=== PATIENT | female | born 1975 | race Caucasian/White ===

== ENCOUNTER → 2017-11-02 09:15 | Outpatient (CLI) | payer MEDICAID, SELFPAY ==
[2017-11-02 10:36] LABS: Anion Gap 6 (5-15); BUN 11 mg/dL (7-18); BUN/Creat Ratio 14.8 RATIO (10-20); Calcium,Total 8.5 mg/dL (8.5-10.1); Chloride 109 mmol/L (98-107); Cholesterol 146 mg/dL (200); Creatinine, Serum 0.74 mg/dL (0.55-1.02); EST Glomerular Filtration Rate 91 mL/min (>60); Est Glom Filt Rate - Afr Amer 111 mL/min (>60); Glucose 93 mg/dL (74-106); High Density Lipoprotein 50 mg/dL; Potassium 3.9 mmol/L (3.5-5.1); Sodium Level 142 mmol/L (136-145); Triglycerides 70 mg/dL; Very Low Density Lipoprotein 14 mg/dL (5-40)
== END ==
PROVIDERS: Family Provider Family Medicine; PCP Family Medicine; Visit Provider Family Medicine
DX: Z00.00 Encounter for general adult medical examination without abnormal findings (principal)
CPT/HCPCS: 36415; 80048; 80061

== ENCOUNTER → 2017-11-19 16:01 | Outpatient (CLI) | payer MEDICAID, SELFPAY ==
[2017-11-19 17:51] LABS: ALB/GLOB Ratio 1.1 RATIO (0.9-2.4); AST(SGOT) 16 U/L (15-37); Alanine Aminotransfer ALT/SGPT 26 U/L (13-56); Albumin, Serum 3.8 g/dL (3.2-5.0); Alkaline Phosphatase 56 U/L (45-117); Anion Gap 8 (5-15); BUN 11 mg/dL (7-18); BUN/Creat Ratio 11.9 RATIO (10-20); Calcium,Total 8.6 mg/dL (8.5-10.1); Chloride 106 mmol/L (98-107); Creatinine, Serum 0.93 mg/dL (0.55-1.02); EST Glomerular Filtration Rate 71 mL/min (>60); Est Glom Filt Rate - Afr Amer 86 mL/min (>60); Globulin 3.6 g/dL (2.2-4.2); Glucose 83 mg/dL (74-106); Protein, Total 7.4 g/dL (6.4-8.2); Sodium Level 142 mmol/L (136-145)
== END ==
PROVIDERS: Family Provider Family Medicine; PCP Family Medicine; Visit Provider Family Medicine
DX: B35.1 Tinea unguium (principal)
CPT/HCPCS: 36415; 80053

== ENCOUNTER → 2017-12-02 11:37 | Outpatient (CLI) | payer MEDICAID, SELFPAY ==
[2017-12-07 10:12] LABS: HPV Reflexed? NOT INDICATED
== END ==
PROVIDERS: Visit Provider Obstetrics & Gynecology
DX: Z01.419 Encounter for gynecological examination (general) (routine) without abnormal findings (principal)
CPT/HCPCS: 88175; G0145

== ENCOUNTER → 2017-12-16 14:50 | Outpatient (CLI) | payer MEDICAID, SELFPAY ==
--- NOTE | 2017-12-16 14:53 | BI_ITS ---
MAMMOGRAPHY - BILATERAL SCREENING REASON FOR EXAM: Female, 41 years old. Routine annual screening examination. PERTINENT HISTORY: Non-contributory. TECHNIQUE: Digital bilateral breast yani (3D mammographic acquisition) in the CC and MLO projections. 2-D mediolateral oblique (MLO) and craniocaudad (CC) views of both breasts were obtained. CAD: Full Field Digital Mammography with Computer Added Detection was performed. COMPARISON: None. Baseline examination. FINDINGS: Breast Composition: There are scattered areas of fibroglandular density. There are no dominant masses or suspicious calcifications. There is a 1 cm x 1 cm well-defined nodule with a central fatty notch in the upper lateral aspect of the left breast. This most likely represents a small lymph node. Correlation with ultrasound is recommended. Several benign-appearing lymph nodes are seen in the axillary regions bilaterally. No other significant abnormalities are identified. BI/SCREENING MAMM (CAD), BILAT IMPRESSION: 1 cm x 1 cm well-defined nodule in the upper lateral portion of the left breast as described. This most likely represents a small lymph node. Progress with ultrasound is recommended. ASSESSMENT CATEGORY: BIRADS Category 0: Incomplete. Need additional imaging evaluation. A letter regarding these results will be sent to the patient by the facility within 30 days. Approximately 10% of breast cancers are not detected by mammography. A normal mammogram should not delay biopsy of a clinically suspicious abnormality. [id number] Electronically Signed: Kelton Alcocer MD at 9:43 EDT Tel [phone], Service support ,
== END ==
PROVIDERS: Family Provider Family Medicine; PCP Family Medicine; Visit Provider Obstetrics & Gynecology
DX: Z12.31 Encounter for screening mammogram for malignant neoplasm of breast (principal)
CPT/HCPCS: 77063; 77067

== ENCOUNTER → 2017-12-18 15:11 | Outpatient (CLI) | payer MEDICAID, SELFPAY ==
--- NOTE | 2017-12-18 15:13 | US_ITS ---
STUDY: ULTRASOUND BREAST - LEFT REASON FOR EXAM: Female, 41 years old. Abnormal left mammogram. TECHNIQUE: Axial and longitudinal images of the LEFT breast were performed with a high resolution ultrasound transducer. COMPARISON: No prior ultrasound imaging available. Correlation bilateral mammogram 12/16/2017. FINDINGS: LEFT Breast: There is a lesion in the upper Outer quadrant. The lesion measures 0.7 x 0.7 x 0.6 cm in size. Clock notation: 2 o'clock position. Distance from nipple: 6 cm. Posterior Enhancement: Identified Posterior Shadowing: Not identified Margins: Smooth and well demarcated Echogenicity: Heterogeneous with central hyperechoic likely fatty hilum and peripheral hypoechogenicity most suggestive a lymph node. Central internal color Doppler signal also. Compression effect on Shape: Minimal US/Breast Limited Unilateral IMPRESSION: Benign-appearing lymph node in the left breast corresponding to mammographic finding. Recommend routine annual bilateral mammogram in 12 months. ASSESSMENT CATEGORY: BIRADS Category 2: Benign. A letter regarding these results will be sent to the patient by the facility within 30 days. Negative results should not deter biopsy as a palpable lesion if present should be followed on clinical grounds and biopsy performed if clinically persistent for 3 months or increasing size. Approximately 10% of breast cancers are not detected by mammography. A normal mammogram should not delay biopsy of a clinically suspicious abnormality. Electronically Signed: Arthur Lucien, at 20:48 EDT Tel , Service support ,
== END ==
PROVIDERS: Family Provider Family Medicine; PCP Family Medicine; Visit Provider Obstetrics & Gynecology
DX: R92.8 Other abnormal and inconclusive findings on diagnostic imaging of breast (principal)
CPT/HCPCS: 76642

== ENCOUNTER → 2019-11-30 15:57 | Outpatient (CLI) | payer MEDICAID, SELFPAY ==
--- NOTE | 2019-11-30 15:59 | BI_ITS ---
MAMMOGRAPHY - BILATERAL SCREENING REASON FOR EXAM: Female, 43 years old. Routine annual screening examination. PERTINENT HISTORY: Non-contributory. TECHNIQUE: Digital bilateral breast vandana (3D mammographic acquisition) in the CC and MLO projections. 2-D mediolateral oblique (MLO) and craniocaudad (CC) views of both breasts were obtained. CAD: Full Field Digital Mammography with Computer Added Detection was performed. COMPARISON: Comparison is made with prior examination dated December 16, 2017. FINDINGS: Breast Composition: There are scattered areas of fibroglandular density. There are no dominant masses or suspicious calcifications. Stable 8 mm well-defined nodule with a central fatty notch in the lateral upper aspect of the left breast. This was demonstrated to be a small lymph node on prior sonogram. No other significant abnormalities are identified. There has been no significant change since the prior study. BI/SCREEN MAMM (CAD) W/VANDANA BILAT IMPRESSION: Stable bilateral screening mammogram. Yearly follow-up mammogram recommended. (A) ASSESSMENT CATEGORY: BIRADS Category 2: Benign. A letter regarding these results will be sent to the patient by the facility within 30 days. Approximately 10% of breast cancers are not detected by mammography. A normal mammogram should not delay biopsy of a clinically suspicious abnormality. [id number] Electronically Signed: Kelton Alcocer, at 8:25 EDT , Service support ,
== END ==
PROVIDERS: PCP Family Medicine; Referring Provider Obstetrics & Gynecology; Visit Provider Obstetrics & Gynecology
DX: Z12.31 Encounter for screening mammogram for malignant neoplasm of breast (principal)
CPT/HCPCS: 77063; 77067

== ENCOUNTER → 2021-02-01 15:02 | Outpatient (CLI) | payer MEDICAID, SELFPAY | PROVIDERS: PCP Family Medicine; Referring Provider Family Medicine; Visit Provider Family Medicine | DX: Z20.822 Contact with and (suspected) exposure to COVID-19 (principal) | CPT/HCPCS: 87635; U0003 ==

== ENCOUNTER 2021-08-01 15:00 | Outpatient (CLI) | payer MEDICAID, SELFPAY ==
--- NOTE | 2021-08-01 15:04 | RAD_ITS ---
INDICATION: KNEE PAIN EXAMINATION/TECHNIQUE: X-RAY - LEFT XR Knee Complete 4 Views or More 4 VIEWS COMPARISON: None. 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 Minimal lateral compartment degenerative changes. Mild patellofemoral joint degenerative changes. Joint spaces are otherwise intact. Soft tissues are unremarkable. No significant joint effusion. Electronically Signed: Charly Mejía, at 15:54 EDT ,
== END 2021-08-01 23:59 | disposition home or self-care (01) ==
LOC: MTRAD 15:02
PROVIDERS: PCP Family Medicine; Referring Provider Family Medicine; Visit Provider Family Medicine
DX: M17.12 Unilateral primary osteoarthritis, left knee (principal)
CPT/HCPCS: 73564

== ENCOUNTER → 2021-11-22 | Outpatient (CLI) | payer MEDICAID, SELFPAY | END | disposition home or self-care (01) | PROVIDERS: PCP Family Medicine; Visit Provider Family Medicine | DX: R30.0 Dysuria (principal) | CPT/HCPCS: 87077; 87086; 87088; 87186 ==

== ENCOUNTER → 2022-09-17 | Outpatient (CLI) | payer MEDICAID, SELFPAY ==
--- NOTE | 2022-09-17 08:30 | EMB_PTH ---
PATIENT: KEVEN COY LOC: [facility] U#:[id number] AGE/SX: 46/F ROOM: RE09/17/[address]: Dr. Yessenia Arellano DO : 1975 BED: DIS: 09/17/2022 SPEC #: [id number] RECD: 09/17/22 09:40 STATUS: LUCIUS SALEEM #: [id number] BAYLEE: 09/17/22 08:[address]: Yessenia Arellano DEPT: SURGICAL PATHOLOGY RECD BY: Monique Ma ENTERED: 09/17/22 10:08 SP TYPE: ENDOM BX/C OTHR DR: Dr. Mack Juan MD Tissues: Endometrium, NOS Procedures: Surgery Specimen Level IV HEADER OPERATION: Endometrial biopsy PRE-OP DIAGNOSIS: Abnormal uterine bleeding TISSUE SUBMITTED: Endometrial lining MICROSCOPIC DIAGNOSIS Endometrium, biopsy: Weakly proliferative endometrium with chronic endometritis, moderate to severe. AM:yuly 09/18/2022 MICROSCOPIC DESCRIPTION Slides are reviewed. GROSS DESCRIPTION Received is one container labeled with the patient's name and not further designated. The specimen consists of multiple fragments of hemorrhagic mucoid tissue that in aggregate measure 2.0 x 2.0 x 0.1 cm. The specimen is totally submitted in one cassette. / SJ:yuly 09/17/2022 TC:3 CPT: 09582
[2022-09-24 16:09] LABS: HPV APTIMA, High Risk Positive (Negative)
== END | disposition home or self-care (01) ==
PROVIDERS: PCP Family Medicine; Referring Provider Obstetrics & Gynecology; Visit Provider Obstetrics & Gynecology
DX: Z12.4 Encounter for screening for malignant neoplasm of cervix (principal); N71.1 Chronic inflammatory disease of uterus; N93.9 Abnormal uterine and vaginal bleeding, unspecified
CPT/HCPCS: 87624; 88175; 88305; G0145

== ENCOUNTER → 2022-10-02 | Outpatient (CLI) | payer MEDICAID, SELFPAY ==
--- NOTE | 2022-10-02 | CER_PTH ---
PATIENT: KEVEN COY LOC: [facility] U#:[id number] AGE/SX: 46/F ROOM: RE10/02/[address]: Dr. Yessenia Arellano DO : 1975 BED: DIS: 10/02/2022 SPEC #: [id number] RECD: 10/02/22 12:58 STATUS: LUCIUS SALEEM #: [id number] BAYLEE: 10/02/22 00:[address]: Yessenia Arellano DEPT: SURGICAL PATHOLOGY RECD BY: Young Hart ENTERED: 10/02/22 12:58 SP TYPE: CERV OTHR DR: Dr. Mack Juan MD Tissues: A - Uterine cervix, NOS B - Endocervical Procedures: Surgery Specimen Level IV HEADER OPERATION: Colposcopy PRE-OP DIAGNOSIS: ASCUS, HPV positive TISSUE SUBMITTED: A ? 12 o?clock, B ? Endocervical curettings MICROSCOPIC DIAGNOSIS A. Cervix, 12 o?clock, biopsy: A fragment of squamous mucosa, negative for dysplasia. B. Endocervix curettings: Scant fragments of mucoid tissue, insufficient for further evaluation. YONNY:yuly 10/03/2022 COMMENT Please make reference to previous specimen ([id number]), endometrium, biopsy with diagnosis of ?weakly proliferative endometrium with chronic endometritis, moderate to severe.? MICROSCOPIC DESCRIPTION Slides are reviewed. GROSS DESCRIPTION A - Received in fixative is one container labeled with the patient's name and designated 12 o'clock. The specimen consists of one irregular fragment of light quezada soft tissue that measures 0.4 x 0.4 x 0.1 cm. The specimen is totally submitted in one cassette. B - Received is a metallic endoscopic cytobrush with adherent minute fragments of quezada-red tissue brush in 2 ml of clear red fluid and labeled with the patient's name and and designated per the requisition as ECC. The material is dislodged from the brush and submitted for cytology preparation including cell block. / YONNY:yuly 10/02/2022 TC:5 CPT: 53135 x2
== END | disposition home or self-care (01) ==
LOC: LABSPEC 11:47
PROVIDERS: PCP Family Medicine; Referring Provider Obstetrics & Gynecology; Visit Provider Obstetrics & Gynecology
DX: R87.610 Atypical squamous cells of undetermined significance on cytologic smear of cervix (ASC-US) (principal); N89.8 Other specified noninflammatory disorders of vagina
CPT/HCPCS: 87070; 87077; 87205; 88305

== ENCOUNTER 2022-10-28 10:01 | Observation (INO) | payer MEDICAID, SELFPAY ==
[2022-10-16 12:53] LABS: Hematocrit 35.8 % (37-47); Hemoglobin 11.6 g/dL (12.0-15.0); Mean Corp Hgb Conc 32.4 g/dL (32-36); Mean Corpuscular Hgb 28.7 pg (27.0-32.0); Mean Corpuscular Volume 88.6 fL (81-99); Mean Platelet Vol. 9.3 fl (6.2-12.0); Platelet Count 432 K/mm3 (150-450); RBC Distribution Width SD 49.1 fl (35.1-43.9); Red Blood Count 4.04 M/mm3 (4.2-5.4); White Blood Count 9.8 K/mm3 (4.4-11.0)
[2022-10-16 13:10] LABS: Magnesium 2.4 mg/dL (1.6-2.6)
[2022-10-28] VITALS (13 sets, daily range): BP systolic 113–153; BP diastolic 68–88; PULSE 71–100; RESP 14–18; TEMP 36.6–36.9; O2SAT 93–99; BMI 44.7
[2022-10-28 06:07] LABS: Internal QC Validated? YES +Cl - CLEAR BKGD; Pregnancy, Urine Negative Negative
[2022-10-28] MEDS: Lactated Ringers 1,000 ML 40 ML IV (06:20)
[2022-10-28] MEDS: Magnesium 1 GM over 15 mins IV (06:21)
[2022-10-28] MEDS: Gabapentin 600 MG Tablet PO (06:22)
[2022-10-28] MEDS: Acetaminophen 500 MG Tablet 1000 MG PO ×3 (06:22→18:24)
[2022-10-28] MEDS: Celecoxib 200 MG Capsule 400 MG PO (06:23)
[2022-10-28] MEDS: Phenazopyridine 95 MG Tablet 190 MG PO (06:23)
[2022-10-28] MEDS: dexAMETHasone 4 MG/ML Vial 8 MG IV (06:24)
[2022-10-28 06:57] LABS: Bedside Glucose 96 mg/dL (74-106)
--- NOTE | 2022-10-28 07:25 | HP.PCM_ITS ---
History and Physical Date of Admission: 10/28/22 Intake Vital Signs ? 09/13/2307:13 09/18/2307:13 09/18/2307:14 Height 5 ft 1 in 5 ft 1 in 5 ft 1 in Weight: ? 235 lb 6 oz ? BMI ? 44.4 ? BP ? 163/89 H ? Intake Visit Reasons:?EMB Job Forwarder Required: No Is patient in pain?: No Allergies No Known Allergies Allergy (Verified 09/17/22 08:13) Medications bupropion HCl 300 mg 24 hr tablet, extended release (Wellbutrin XL) 300 mg PO QAM 09/09/22 [History Confirmed 09/17/22] duloxetine 60 mg capsule,delayed release (Cymbalta) 60 mg PO DAILY 09/09/22 [History Confirmed 09/17/22] methylphenidate HCl 20 mg tablet (Ritalin) 20 mg PO DAILY 09/09/22 [History Confirmed 09/17/22] Post menopausal: No Patient : No : No PFSH PFSH Medical History? Abnormal Pap smear of cervix Surgical History?(Updated 09/17/22 @ 08:21 by Leslee Nazario) S/P cholecystectomy S/P dilation and curettage S/P tubal ligation Family History? Father Alzheimer's dementia Social History? Smoking Status:? Never smoker alcohol intake:? current details:? occasionally substance use type:? does not use caffeine:? Yes what type of physical activity do you participate in:? none seatbelt use:? always do you feel safe at home:? Yes additional social history:? Boyfriend-Farshad ? History ? ? ? 2 ? Elective abortions ? Hx Para ? ? ? 2 ? Spontaneous abortions ? Hx # Term Pregnancies ? Ectopic pregnancies ? Hx # Pregnancies ? Multiple births ? # of living children ? Past Pregnancies Del. Date Name GA/Weeks Outcome Route Bth Weight Infant Gen Labor Lgth Anesthesia Del [facility] Provider FOB Unknown Hernan ? Unknown Nikolay ?A ? ? ? HPI EMB Details: KEVEN COY is a 46 year old who presents for EMB and pre-op exam. Some records from [place] came through showing a nomal size uterus and ascus pap. To recap, Keven is a (vaginal deliveries) who presented initially for discussion about hysterectomy last month. She was seeing a provider in [place] who is no longer taking her insurance. She had an abnormal pap her last test but does not remember getting a colposcopy. The reason for her request for hysterectomy is pelvic pain, heavy menses q 2 weeks with clots. She has tried hormone therapy and it did not help. she is not interested in an ablation or an IUD.? ROS Const ROS Unobtainable: All systems reviewed & are unremarkable except as noted in H Resp Resp: Reports system reviewed and no additional complaints, except as documented; Denies cough GI GI: Reports as per HPI Psych Psych: Reports system reviewed and no additional complaints, except as documented Exam Const General: cooperative, healthy appearing, comfortable and no acute distress Resp Effort & Inspection: normal respiratory effort General: bimanual renal exam normal bilaterally External Female Exam: normal appearance of the urethra Urethra: normal appearance of the urethra Speculum Exam - Vagina: normal appearance of the vagina Speculum Exam - Cervix: normal appearance of the cervix Bimanual Exam- Adnexa, other: normal adnexae and normal Pelvic Support: normal Skin General: no rashes or lesions noted Psych Appearance: grossly normal Speech and Movement: speech and movement normal Office Procedures Endometrial Biopsy Endometrial Biopsy Test: Yes declined Consent Signed: Yes Time out checklist: patient tenaculum used: Yes dilator used: No Details: Cervix prepped with betadine and pipelle inserted into uterus without complication. Specimen obtained and sent to lab for analysis. All instruments removed from vagina without complications. Excellent hemostasis noted. Coding Level of Care Code Off vis,est,level 5 Diagnoses Abnormal uterine bleeding? N93.9 CPT Codes Endometrial Biopsy (56951) Assessment and Plan Assessment and Plan (1) Abnormal uterine bleeding: ?Status:?Acute ? ? ? Orders: Orders Endometrial Biopsy Today N93.9 - Abnormal uterine and vaginal bleeding, unspecified ? PAP IG HPV APTIMA 16/18,45 Today Z12.4 - Encounter for screening for malignant neoplasm of cervix ? Plan After discussing the patient's diagnosis and treatment plan options, patient wishes to proceed with surgical management.? I have discussed with the patient the risks, benefits, and alternatives of the procedure which include but are not limited to risks of anesthesia, bleeding, infection, possible damage to bowel, bladder, or surrounding vasculature which could lead to additional surgery to evaluate any complications.? Patient agrees to procedure and wishes to proceed.? ACOG/uptodate references given for additional information regarding procedure.? Plan for robotic surgery due to obesity and poor vaginal access. Assessment & Plan Assessment/Plan (1) Abnormal uterine bleeding: (2) ASCUS of cervix with negative high risk HPV: (3) Hypertension: PLAN: Plan The colposcopy was benign and bp well controlled on HCTZ. patient would like full admit after surgery due to lack of help at home. Her friend who was her ride passed out in preop today and is not fit to drive herself or [place] home after surgery.
--- NOTE | 2022-10-28 07:30 | HYST_PTH ---
PATIENT: KEVEN COY LOC: [facility] U#:[id number] AGE/SX: 46/F [place] [facility] [place]: Dr. Yessenia Arellano DO : 1975 BED: 1 DIS: 10/29/2022 SPEC #: [id number] RECD: 10/28/22 12:11 STATUS: LUCIUS SALEEM #: [id number] BAYLEE: 10/28/22 07:[address]: Yessenia Arellano DEPT: SURGICAL PATHOLOGY RECD BY: Monique Ma ENTERED: 10/28/22 12:34 SP TYPE: HYSTERECT OTHR DR: Dr. Mack Juan MD Tissues: Uterus, NOS Procedures: Surgery Specimen Level V HEADER OPERATION: ERAS, lab robotic hysterectomy, bilateral salpingectomy, cystoscopy PRE-OP DIAGNOSIS: Abnormal uterine bleeding, ASCUS of cervix with negative high risk HPV TISSUE SUBMITTED: Uterus, cervix, bilateral fallopian tubes MICROSCOPIC DIAGNOSIS Uterus, cervix, bilateral fallopian tubes, hysterectomy and bilateral salpingectomy: Cervix ? chronic cystic cervicitis with tunnel cluster formation and squamous metaplasia. - negative for dysplasia. See comment. Endometrium ? proliferative endometrium. Myometrium ? focal superficial adenomyosis. Bilateral fallopian tubes ? focal minimal hematosalpinx and chronic inflammation proximal to the site of tubal occlusion. Right paratubal cyst. SJ:rg 10/29/2022 COMMENT Entire cervix is examined. MICROSCOPIC DESCRIPTION Slides are reviewed. GROSS DESCRIPTION Received in fixative is one container labeled with the patient's name and designated uterus, cervix, bilateral fallopian tube. The specimen consists of a hysterectomy specimen consisting of uterus with cervix and attached bilateral fallopian tubes. The uterus with cervix weighs 125 gm and measures 10.0 x 6.5 x 4.5 cm. The serosal surface is quezada, glistening. The ectocervical mucosa is unremarkable. The external os is oval in contour. The endocervical canal measures 3.0 cm in length and the endocervical mucosa is unremarkable. Sections of the cervix reveal multiple cysts filled with mucoid material. The triangular endometrial cavity measures 4.5 cm in length and 2.5 cm in width. The endometrium is quezada, glistening without any mass lesion and measures 0.1 cm in thickness. Sections of the uterine wall do not reveal any mass lesion and measures up to 2.5 cm in thickness. The right fallopian tube measures 6.0 cm in length and 0.5 cm in diameter. It is interrupted in the middle consistent with previous tubal occlusion. The fimbrial end is identified. Proximal portion of the fallopian tube reveals a mildly dilated lumen measuring 0.1 cm in diameter and filled with blood. A paratubal cyst is also noted measuring 0.7 cm in greatest dimension. The left fallopian tube is similar appearance to right and measures 5.5 cm in length and 0.6 cm in diameter. The fimbrial end is identified. It is also interrupted in the middle consistent with previous tubal occlusion. The proximal portion of the fallopian tube shows dilated lumen measuring 0.2 cm in diameter and filled with a small amount of blood. Staffing Program Manager sections are submitted in 14 cassettes as follows: 1-8 ? cervix, like a cone biopsy (1 & 2 - 12 to 3 o?clock, 3 & 4 - 3 to 6 o?clock, 5 & 6 - 6 to 9 o?clock, 7 & 8 - 9 to 12 o?clock), 9 & 10 - anterior uterine wall, 11 & 12 - posterior uterine wall, 13 - right fallopian tube and paratubal cyst, 14 - left fallopian tube. / YONNY:yuly 10/28/2022 TC:5 CPT: 32933
[2022-10-28] MEDS: Cefazolin 2 GM in 0.9% Normal Saline 100 ML IV (08:45)
[2022-10-28] MEDS: Bupivacaine 0.25% 30 ML Vial (08:55)
--- NOTE | 2022-10-28 09:55 | PCM.OPRPT ---
Problems Associated Problem List Diagnoses (1) Abnormal uterine bleeding: (2) ASCUS of cervix with negative high risk HPV: Report of Operation Date of Procedure: 10/28/22 Pre-Operative Diagnosis: heavy vaginal bleeding, failed conservative therapy Post-Operative Diagnosis: heavy vaginal bleeding, failed conservative therapy Surgery/Procedure Performed:: Total robotic hysterectomy, bilateral salpingectomy, cystoscopy Description of Surgical Findings:: 10 cm size uterus. normal ovaries and cauterized fallopian tubes Surgeon: Yessenia Arellano fire controlman: Gauri Ordaz Type of Anesthesia: General Anesthesiologist: Oscar Cornelius Specimen's removed: uterus, cervix, fallopian tubes Estimated Blood Loss (mL): 25cc Fluids Replaced: 2 liters Description of Procedure: Findings: 10 cm size uterus, normal appearing ovaries and tubes. On exploration of the abdominal cavity the uterus, adnexa, bowel, and liver were found to be normal. Cystoscopy showed no evidence of leaking at approximately 250 cc of normal saline, positive ureteral orifices and jet flow are seen and no suture material was appreciated in the bladder. Specimens removed: Uterus and cervix, Bilateral tubes Reason for surgery: This is a 46-year-old G2, P2 who presented to my office with history of heavy vaginal bleeding and has failed conservative therapy. She has central obesity and poor vaginal access. The planned procedure is for a robotic hysterectomy the risks benefits and alternatives were discussed with the patient the patient had a clear understanding of the procedure and a consent form was signed. Procedure: The patient was placed in the dorsal low lithotomy position and prepped and draped in the normal sterile fashion both abdominally and in the perineum. Her legs were placed in stirrups a Hays catheter was inserted into the urethra without difficulty. A weighted speculum was placed in the vagina and a single-tooth tenaculum was used to grasp the anterior lip of the cervix. An advincula uterine manipulator was inserted through the cervix without complication. It was then tied into place at the 2 and 10:00 locations on the cervix. Gloves were changed and attention was turned towards the abdomen. Approximately 23 cm above the pubic symphysis in the midline, and after Marcaine injection, a 8 mm incision was made. An 8 mm trocar was inserted through the laparoscope, then inserted into the abdomen under direct visualization using the laparoscope. Good abdominal placement was noted and no complications were appreciated. An air seal device was utilized to create pneumoperitoneum. At 12 cm lateral to the midline on the left and right sides 8 mm accessory ports were placed. Next a left upper quadrant 8 mm certified teacher assistant port site was placed. The patient was placed in steep Trendelenburg position. The robot was docked. The hysterectomy was initiated first by taking down the round ligament on each side using the vessel sealer device. The fallopian tubes were grasped and the underlying mesosalpix was cauterized and cut. The broad ligament was then and taken down using the vessel sealer device. Next the bladder flap was taken down without complication. This was done using monopolar cautery to the level of the cervical vaginal junction. After the bladder flap was created, uterine vessels were then isolated and cauterized using the vessel sealer device and EndoShears. At this point the uterine vessels were taken down further starting from the ascending branch, dissecting along the edges of the cervix to the level of the cervical vaginal junction with hemostasis appreciated. The cervical vaginal junction was then using monopolar cautery in a circumferential pattern across the superior aspect of the cervix. The specimen was delivered through the vagina and sent to pathology. The remaining vaginal cuff was then closed using a V lock suture. This was performed in a running technique. Excellent hemostasis was obtained and good closure was noted. Irrigation was then performed. All operative sites were noted to be hemostatic. A cystoscopy was performed with a 70 degree cystoscope through the urethra into the bladder without complication. The bladder was instilled with approximately 250 cc of normal saline. Intraoperative images were made. Ureteral orifices and jets were identified. No suture material was appreciated in the bladder. The bladder was then drained and cystoscope was removed. The abdominal cavity was again examined using the laparoscope after the robot was undocked. All operative sites were noted to be hemostatic. The trochars were removed under direct visualization without complication and pneumoperitoneum was reduced. At this point the skin was then closed using 4-0 Monocryl subcuticular stitch and sealed with surgical glue. The patient tolerated the procedure well sponge lap and needle counts were correct x2 the patient was taken to the recovery room in stable condition. Grafts/Implants Used: none Complications none Admit VTE Documentation VTE Present on Admission: No VTE Pharm Prophylaxis ordered?: No Multi Select Codes Urinary/Genital Urinary/Genital CPT Codes: 77899 TLH+BS/O <250gr uterus
--- NOTE | 2022-10-28 09:59 | PCM.DC ---
Discharge Instructions Diet Discharge Diet: No restrictions Activity May resume sexual activity in: 6 weeks Weight Bearing Status: Full weight bearing Dressing / Incision Call your doctor if your incision/area has: Continuous Slow Oozing, Sudden Increased Bleeding, Increased Pain/ Swelling, Increased Redness and Foul Smelling Discharge Call your doctor if you observe: Fever of 101 or Higher, Using more than 1 pad per hour, Shortness of breath, Chest pain and Uncontrolled pain Suture Line Care: Avoid Pulling/Pushing and Avoid Pinching/Bending Remove Dressing in: 1 week (if present) Cleanse incision/area with: Soap & Water and Keep Dressing Clean & Dry Follow Up Care Please Follow Up With: Yessenia Arellano DO When: Call to make an appointment with your doctor for a postop visit in 2 and 6 weeks Test Results: Test results from this visit will be discussed in further detail at your follow-up appointment, if applicable. Discharge Plan Admission Primary Reason for Your Visit: hysterectomy Attending Provider: Yessenia Arellano Primary Care Provider: Mack Juan Discharge Orders/Prescriptions Prescriptions: New ibuprofen 800 mg tablet 800 mg PO Q8H PRN (Reason: pain) Qty: 30 0RF oxycodone-acetaminophen [Percocet] 5-325 mg tablet 1 tab PO Q4H PRN (Reason: pain) 7 Days Qty: 30 0RF Rx Instructions: 1-2 tabs q 4 hrs as needed for pain Continued bupropion HCl [Wellbutrin XL] 300 mg tablet extended release 24 hr 300 mg PO QAM duloxetine [Cymbalta] 60 mg capsule,delayed release(DR/EC) 60 mg PO DAILY methylphenidate HCl [Ritalin] 20 mg tablet 20 mg PO DAILY hydrochlorothiazide 12.5 mg tablet 12.5 mg PO DAILY Qty: 30 2RF Other Ambulatory Orders: ,Urine (Routine) Timeframe: 20221028 Facility: [facility] - Location: Laboratory Ordered By: Dr. Yessenia Arellano 12 Lead EKG (Routine) Timeframe: 20221015 Location: None Selected Ordered By: Dr. Yessenia Arellano Referrals / Follow Up: Mack Juan MD [Primary Care Provider] - Disposition Disposition (needs filled in before D/C Order can be placed): Home, Self Care
[2022-10-28] MEDS: Ondansetron 4 MG/2 ML Vial IV (10:00)
[2022-10-28] MEDS: Ketorolac 30 MG/ML Syringe IV ×2 (11:01→16:54)
[2022-10-28] MEDS: 0.9% Saline Lock 10 ML Syringe IV ×2 (16:54→21:49)
[2022-10-28] MEDS: Enoxaparin 40 MG/0.4 ML Syringe SC (21:48)
[2022-10-28] MEDS: Docusate Sodium 100 MG Capsule PO (21:49)
[2022-10-28] MEDS: HYDROmorphone 0.5 MG/0.5 ML SYRINGE IV (21:49)
[2022-10-29] VITALS (7 sets, daily range): BP systolic 120–133; BP diastolic 70–80; PULSE 64–93; RESP 16; TEMP 36.3–36.9; O2SAT 92–99
[2022-10-29] MEDS: Ondansetron ODT 4 MG Tablet PO (01:19)
[2022-10-29] MEDS: Acetaminophen 500 MG Tablet 1000 MG PO ×4 (06:25→18:21)
[2022-10-29] MEDS: 0.9% Saline Lock 10 ML Syringe IV ×2 (06:28→18:21)
[2022-10-29] MEDS: Ketorolac 30 MG/ML Syringe IV (06:29)
[2022-10-29 07:10] LABS: Hematocrit 30.1 % (37-47); Hemoglobin 9.3 g/dL (12.0-15.0); Mean Corp Hgb Conc 30.9 g/dL (32-36); Mean Corpuscular Hgb 28.2 pg (27.0-32.0); Mean Corpuscular Volume 91.2 fL (81-99); Mean Platelet Vol. 9.3 fl (6.2-12.0); Platelet Count 369 K/mm3 (150-450); RBC Distribution Width CV 15.9 % (11.6-14.6); RBC Distribution Width SD 53.2 fl (35.1-43.9); White Blood Count 12.4 K/mm3 (4.4-11.0)
[2022-10-29] MEDS: Ensure Plus High Protein 120 ML LIQUID PO ×2 (08:06→11:57)
[2022-10-29] MEDS: Docusate Sodium 100 MG Capsule PO (09:28)
[2022-10-29] MEDS: buPROPion (XL) 300 MG TABLET.XL PO (09:28)
[2022-10-29] MEDS: HYDROmorphone 0.5 MG/0.5 ML SYRINGE IV ×3 (09:28→18:20)
[2022-10-29] MEDS: DULoxetine Hcl 60 MG Capsule PO (09:28)
[2022-10-29] MEDS: Enoxaparin 40 MG/0.4 ML Syringe SC (09:28)
[2022-10-29] MEDS: hydroCHLOROthiazide 12.5mg 12.5 MG PO (09:28)
[2022-10-29] MEDS: Methylphenidate HCl 5 MG Tablet 20 MG PO (09:31)
--- NOTE | 2022-10-29 13:29 | CHAPLAIN ---
Type of Pastoral Visit _x__ Initial Visit ___ Follow-up Visit ___ On-call Visit ___ General Patient Visit ___ Spiritual Assessment ___ Family Conference ___ Bereavement ___ Rapid Response ___ Code Blue ___ Other (describe below) Pastoral Care Referral From _x__ Patient ___ Family ___ Nurse ___ Physician ___ Interactive Media Marketing Director ___ Competitive Athlete ___ Other (describe below) Sacrament/Intervention _x__ Active listening ___ Anointing ___ Religious ___ Bereavement ___ Communion ___ Farzaneh exploration ___ ___ Life review _x__ Prayer ___ Reconciliation ___ Sacrament of Sick ___ Supportive presence ___ Wedding ___ Other (describe below) Pastoral Comments patient reports good care from staff and very little in any concerns; pt would welcome a prayer for her recovery and for her son that leaves for basic training in two weeks; pt is pleasant and expresses gratitude for support
--- NOTE | 2022-10-29 13:35 | PCM.PN.OB ---
Subjective Subjective Patient is laying in bed comfortably without complaints. She states that she slept on an off during the night. pain was still a 6 this am during morning rounds but wants to go home by the evening Objective Data Objective Data Vital Signs: Vital Signs Temp Pulse Resp BP Pulse Ox O2 Del Method O2 Flow Rate 97.3 F L 81 16 120/76 95 Room Air 3 10/29/22 08:07 10/29/22 08:07 10/29/22 08:07 10/29/22 08:07 10/29/22 09:42 10/29/22 09:42 10/28/22 12:37 Oxygen Flow Rate (L/min) 3 Oxygen Delivery Method Room Air Weight: 237 lb Body Mass Index (BMI) 44.7 Intake & Output: Intake and Output for Last 24 Hours 10/27/22 10/28/22 10/29/22 23:59 23:59 23:59 Intake Total 1212 / 1212 Output Total 1200 / 1200 Balance Lab / Micro Data Result Diagrams: 10/29/22 06:34 Labs: Laboratory Results - last 24 hr 10/29/22 06:34: WBC 12.4 H, RBC 3.30 L, Hgb 9.3 L, Hct 30.1 L, MCV 91.2, MCH 28.2, MCHC 30.9 L, RDW Std Deviation 53.2 H, RDW Coeff of Toña 15.9 H, Plt Count 369, MPV 9.3 ROS Constitutional Constitutional: Reports systems reviewed and no addt'l complaints, except as documented Cardiovascular Cardiovascular: Denies chest pain, dizziness, dyspnea or irregular heart rhythm Respiratory/Chest Respiratory/Chest: Denies cough, pain on inspiration or shortness of breath at rest Gastrointestinal Gastrointestinal: Denies abdominal pain, nausea or vomiting Genitourinary Genitourinary: Denies burning urination Musculoskeletal Musculoskeletal: Denies muscle cramps, muscle spasms or muscle weakness Neurologic Neurologic: Denies confusion, dizziness, headache(s) or lack of coordination Psychiatric Psychiatric: Denies anxiety, behavioral changes or depression Physical Exam HEENT normocephalic Resp normal respiratory effort and normal air movement GI soft to palpation, non-tender and non-distended Rectal Exam: other Other Details: Incision is clean, dry, and intact no CVA tenderness Extremity normal to inspection General Extremity: edema bilateral (trace ) Assessment & Plan (1) Status post hysterectomy: PLAN: patient is s/p robotic hysterectomy POD 1 1. routine ERAS protocol postop care- increase ambulation, encourage oral intake and oral control of pain. lovenox and scds for dvt prophylaxis, patient stable for discharge to home.
--- NOTE | 2022-10-29 14:43 | PHA.DC.MC ---
Pharmacy Service has performed discharge medication reconciliation and counseling for this patient. Patient requested meds to beds, this [facility] called retail and requested delivery. 1. IBUPROFEN 800MG PO Q8H PRN PAIN 2. NORCO 5/325MG 1T PO Q4H PRN PAIN The patient's discharge medication list was reviewed for discrepancies and discrepancies were resolved. Home Medications bupropion HCl 300 mg 24 hr tablet, extended release (Wellbutrin XL) 300 mg PO QAM 09/09/22 duloxetine 60 mg capsule,delayed release (Cymbalta) 60 mg PO DAILY 09/09/22 methylphenidate HCl 20 mg tablet (Ritalin) 20 mg PO DAILY 09/09/22 hydrochlorothiazide 12.5 mg tablet 12.5 mg PO DAILY #30 tabs 10/28/22 ibuprofen 800 mg tablet 800 mg PO Q8H PRN pain #30 tabs 10/28/22 oxycodone-acetaminophen 5 mg-325 mg tablet (Percocet) 1 tab PO Q4H PRN pain 7 days #30 tabs 10/28/22 The patient was counseled on the following discharge medications and changes in medications for homegoing were reviewed. The Reason for Use, instructions for use, and potential side effects were reviewed for all new medications. The patient's questions regarding all of their medications were answered. The patient was able to verbally demonstrate an understanding of their discharge medications. Patient counseled by pharmacy benefit managerEdward.
== END 2022-10-29 18:40 | disposition home or self-care (01) ==
LOC: SDC 11:35 → MS3 11:35
PROVIDERS: Anesthesiology; Admitting Provider Obstetrics & Gynecology; PCP Family Medicine; Referring Provider Obstetrics & Gynecology; Visit Provider Obstetrics & Gynecology
PROC: 0UT90ZZ Resection of Uterus, Open Approach (ICD-10-PCS; CPT 58571; principal; 2022-10-28 07:10)
DX: N93.9 Abnormal uterine and vaginal bleeding, unspecified (principal); E66.8 Other obesity; I10 Essential (primary) hypertension; N85.8 Other specified noninflammatory disorders of uterus; N72 Inflammatory disease of cervix uteri; R87.610 Atypical squamous cells of undetermined significance on cytologic smear of cervix (ASC-US); Z79.899 Other long term (current) drug therapy; F32.A Depression, unspecified
CPT/HCPCS: 58571; S2900; 00840; 36415; 81025; 82962; 83735; 85027; 86850; 86900; 86901; 88307; 93005; 94668; 94762; 96372; 96374; 96375; 96376; 99221; J7120; A4216; G0378; J2405; J3475

== ENCOUNTER 2023-01-18 09:48 | Emergency (ER) | payer MEDICAID, SELFPAY ==
[2023-01-18 09:49] VITALS: BP 164/113; PULSE 115; RESP 15; TEMP 37.1; O2SAT 96; BMI 43.9
--- NOTE | 2023-01-18 10:10 | EKG12_ITS ---
Test Reason : CP Blood Pressure : / mmHG Vent. Rate : 110 BPM Atrial Rate : 110 BPM P-R Int : 142 ms QRS Dur : 086 ms QT Int : 342 ms P-R-T Axes : 018 -24 021 degrees QTc Int : 462 ms Sinus tachycardia Otherwise normal ECG Confirmed by DUDLEY NIELSEN, KERRI ([id number]), news video editor FITO TORRES ([id number]) on 01/21/2023 10:44:23 AM Referred By: RAD Confirmed By:KERRI BUCKNER MD
--- NOTE | 2023-01-18 10:10 | ED.VIS.CHEST ---
HPI History of Present Illness Chief Complaint: Chest Pain Narrative Narrative: 47-year-old female past medical history of hypertension presents with midsternal chest pain and pressure that has been going on for the last few weeks intermittently. She states it only last a few minutes when it comes and goes. It is yesterday when she went to bed she felt well but she awoke at 4:00 this morning, 6 hours ago, with chest pressure. She was nauseated but did not vomit. She felt short of breath and mildly diaphoretic. She denies any DVT or PE risk factors. She does have family history of coronary artery disease at a young age and her aunt. She states sitting up makes it feel somewhat better. No exertional component. She had a near syncopal episode reportedly when she was brushing her teeth. What is different about it today as it has been constant since about 4 AM. CVD Risk Factors: Positive for Hypertension and Family History 1' </=55 PFSH PFSH Medical History Abnormal Pap smear of cervix Hypertension Non-smoker Wears dentures Wears glasses Home Medications bupropion HCl 300 mg 24 hr tablet, extended release (Wellbutrin XL) 300 mg PO QAM 09/09/22 [History Last Taken Unknown] duloxetine 60 mg capsule,delayed release (Cymbalta) 60 mg PO DAILY 09/09/22 [History Last Taken Unknown] methylphenidate HCl 20 mg tablet (Ritalin) 20 mg PO DAILY 09/09/22 [History Last Taken 10/28/22] hydrochlorothiazide 12.5 mg tablet 12.5 mg PO DAILY #30 tabs 10/28/22 [Rx Last Taken Unknown] ibuprofen 800 mg tablet 800 mg PO Q8H PRN pain #30 tabs 10/28/22 [Rx Last Taken Unknown] promethazine 12.5 mg tablet 12.5 mg PO Q6H PRN nausea and vomiting #90 tabs 11/03/22 [Rx Last Taken Unknown] Allergy/AdvReac Type Severity Reaction Status Date / Time No Known Allergies Allergy Verified 12/16/22 15:35 Family History Father Alzheimer's dementia Surgical History S/P cholecystectomy S/P dilation and curettage S/P tubal ligation Status post hysterectomy Social History Smoking Status: Never smoker alcohol intake: current details: occasionally substance use type: does not use caffeine: Yes what type of physical activity do you participate in: none seatbelt use: always do you feel safe at home: Yes additional social history: Boyfriend-Farshad CAIN ROS ED ROS Narrative Constitutional: No fever, no chills. HEENT: No sore throat. No neck pain. No loss of vision. No rhinorrhea. Cardiovascular: Midsternal chest pressure/chest pain. No palpitations. No pedal edema. Respiratory: No cough, no shortness of breath. Abdominal: No abdominal pain. No nausea. No vomiting. Genitourinary: No dysuria. No hematuria. Musculoskeletal: No myalgias. No arthralgias. Neurologic: No headaches. No dizziness. No lightheadedness. Skin: No rash. No change in color. Psychiatric: No depression. No anxiety. EXAM Physical Exam Narrative Exam Narrative: Afebrile. Vital signs noted. HEENT: Normocephalic. Atraumatic. PERRL, EOMI. Neck soft and supple. No point tenderness or step off. Cardiovascular: Positive tachycardia no murmurs, rubs, or gallops appreciated. Respiratory: No tachypnea. Lungs clear to auscultation bilaterally. Gastrointestinal: Abdomen soft, nontender, with normoactive bowel sounds. No rebound or guarding. Neurological: Awake. Alert. Nonfocal, nonlateralizing. Skin: No rash. Normal color. No pallor. Musculoskeletal: No pedal edema. Full range of motion extremities. Const Vital Signs: 01/18/23 09:49 01/18/23 09:53 01/18/23 10:33 Temperature 98.7 F Temperature Source Oral Pulse Rate 115 H Respiratory Rate 15 Respiratory Effort Normal Blood Pressure 164/113 H Blood Pressure Mean 130 Pulse Ox 96 Oxygen Delivery Method Room Air Room Air 01/18/23 12:38 Temperature Temperature Source Pulse Rate 90 Respiratory Rate 16 Respiratory Effort Blood Pressure 142/88 H Blood Pressure Mean 106 Pulse Ox 99 Oxygen Delivery Method Room Air Heart Score History: Slightly/Non-Suspicious ECG: Normal Age: >45 - <65 years Risk Factors: 1 or 2 Risk Factors Score: 2 MDM MDM MDM Narrative Medical decision making narrative: In the differential diagnosis is acute coronary syndrome versus pulmonary embolism versus GERD versus nonspecific chest pain. Chest pain work-up was pursued. I will also add a D-dimer. She does have elevated blood pressure of 164/113, but this may be secondary to her essential hypertension. She will be given nitroglycerin and aspirin. EKG was obtained and interpreted by myself independently as normal sinus rhythm/sinus tachycardia at 110 bpm without ectopy or acute ST changes. No STEMI. No significant change from EKG dated October 16, 2022 after review. I reviewed her laboratory work and she has normal white count of 6.0, hemoglobin normal at 12.2, hematocrit 37.5, platelet count normal at 292. D-dimer is elevated at 1.59. CTA was added to her work-up. She has slightly low sodium of 134, but she was bolused normal saline, glucose elevated at 111 appropriately with normal anion gap of 8. Initial high-sensitivity troponin is 4, repeat at 2-hour is 4 for a delta of 0. Chest x-ray interpreted by myself independently shows no acute process, no pneumothorax or pneumonia. I reviewed the radiology report which confirms my independent interpretation. I also reviewed the radiology report of the CTA which shows no evidence of pulmonary artery thrombus/emboli, no evidence of aortic dissection. She had been given 25 mg of fentanyl for analgesia and aspirin. She now has a pulse in the 90 and her blood pressure has come down appropriately to 142/88. Given her negative work-up here I do not feel she requires observation, and I feel she be discharged safely home to follow-up with her primary care provider. Return instructions to the emergency department were reviewed. Disposition is discharged home in stable condition. History & Record Review Discussion w/independent historian: Patient and Family Additional record(s) reviewed:: Prior ED visit (Noncontributory, not seen since 2013) Lab Data Attestation: I reviewed the patient's lab results. Labs: Laboratory Results - last 24 hr 01/18/23 01/18/23 10:05 12:30 WBC 6.0 RBC 4.27 Hgb 12.2 Hct 37.5 MCV 87.8 MCH 28.6 MCHC 32.5 RDW Std Deviation 53.1 H RDW Coeff of Toña 16.5 H Plt Count 292 MPV 9.4 Immature Gran % (Auto) 0.700 Neut % (Auto) 80.3 H Lymph % (Auto) 10.6 L [place] % (Auto) 7.4 Eos % (Auto) 0.3 Baso % (Auto) 0.7 Absolute Neuts (auto) 4.8 Absolute Lymphs (auto) 0.63 L Nucleated RBC % 0 D-Dimer Quant (PE/DVT) 1.59 H* Sodium 134 L Potassium 3.6 Chloride 103 Carbon Dioxide 23.0 Anion Gap 8 BUN 12 Creatinine 0.98 Estim Creat Clear Calc 54.13 Est GFR (MDRD) Af Amer 79 Est GFR (MDRD) Non-Af 65 BUN/Creatinine Ratio 12.2 Glucose 111 H Calcium 9.2 Troponin I High Sens 4 4 Radiography Diagnostic Testing: Clinical Impression(s) from Imaging Studies Chest CTA 01/18/23 10:41 IMPRESSION: 1. Normal CTA chest examination, without a demonstrated pulmonary embolism or arterial dissection. Electronically Signed: Chris Rogers MD at 11:38 EDT Reading Location ID and State: [address] [place] [address] , Service support , Chest X-Ray 01/18/23 11:05 IMPRESSION: Normal x-ray examination of the chest. Electronically Signed: Chris Rogers MD at 11:34 EDT , Discharge Plan Triage Chief Complaint: Chest Pain ED Provider: Venu Bee Dx/Rx/DC Orders Clinical Impression: Elevated d-dimer, Chest pain Instructions: ED Chest Pain, Uncertain Cause Prescriptions: No Action bupropion HCl [Wellbutrin XL] 300 mg tablet extended release 24 hr 300 mg PO QAM duloxetine [Cymbalta] 60 mg capsule,delayed release(DR/EC) 60 mg PO DAILY methylphenidate HCl [Ritalin] 20 mg tablet 20 mg PO DAILY ibuprofen 800 mg tablet 800 mg PO Q8H PRN (Reason: pain) Qty: 30 0RF hydrochlorothiazide 12.5 mg tablet 12.5 mg PO DAILY Qty: 30 2RF promethazine 12.5 mg tablet 12.5 mg PO Q6H PRN (Reason: nausea and vomiting) Qty: 90 4RF Primary Care Provider: Mack Juan Referrals: Mack Juan MD [Primary Care Provider] - 3-5 Days Disposition Disposition: Home, Self Care
[2023-01-18] MEDS: Aspirin 81 MG TAB.CHEW 324 MG PO (10:16)
[2023-01-18] MEDS: 0.9% Normal Saline 1,000 ML 1000 ML IV (10:17)
[2023-01-18 10:24] LABS: Absolute Lymphocyte Count 0.63 X10^3/uL (0.83-4.51); Absolute Neutrophil Count 4.8 X10^3/uL (2.0-7.7); Basophil# 0.04 X10^3/uL; Basophil% 0.7 % (0-1); Eosinophil# 0.02 X10^3/uL; Eosinophils% 0.3 % (0-5); Hematocrit 37.5 % (37-47); Hemoglobin 12.2 g/dL (12.0-15.0); Lymphocyte # 0.63 X10^3/ul (0.83-4.51); Lymphocyte % 10.6 % (19-41); Mean Corp Hgb Conc 32.5 g/dL (32-36); Mean Corpuscular Hgb 28.6 pg (27.0-32.0); Mean Corpuscular Volume 87.8 fL (81-99); Mean Platelet Vol. 9.4 fl (6.2-12.0); Monocyte# 0.44 X10^3/uL; Monocyte% 7.4 % (0-10); NRBC Flagged by Analyzer 0 % (0-5); Neutrophil % 80.3 % (47-70); Platelet Count 292 K/mm3 (150-450); RBC Distribution Width CV 16.5 % (11.6-14.6); RBC Distribution Width SD 53.1 fl (35.1-43.9); Red Blood Count 4.27 M/mm3 (4.2-5.4)
[2023-01-18 10:40] LABS: D-Dimer Quantitative (DVT/PE) 1.59 FEU/ug/m (0.27-0.49)
[2023-01-18 10:41] LABS: Anion Gap 8 (5-15); BUN 12 mg/dL (7-18); BUN/Creat Ratio 12.2 RATIO (10-20); Calcium,Total 9.2 mg/dL (8.5-10.1); Chloride 103 mmol/L (98-107); Creatinine, Serum 0.98 mg/dL (0.55-1.02); EST Glomerular Filtration Rate 65 mL/min (>60); Est Glom Filt Rate - Afr Amer 79 mL/min (>60); Estimated Creatinine Clearance 54.13 ml/min; Glucose 111 mg/dL (74-106); Potassium 3.6 mmol/L (3.5-5.1); Sodium Level 134 mmol/L (136-145); Troponin-I HS (w/2H Reflex) 4 pg/mL (3.0-54.0)
--- NOTE | 2023-01-18 10:41 | CT_ITS ---
STUDY: CTA CHEST REASON FOR EXAM: Female, 47 years old. Elevated D dimer RADIATION DOSAGE (If Supplied By Facility): CTDIvol = ( 10.95 ) mGy, DLP = ( 514.07 ) mGycm TECHNIQUE: The examination was performed with the intravenous administration of IV 100mL Isovue-370. Post-processing of the angiographic images was performed, with multiplanar reformation and 3D reconstruction. Individualized dose optimization techniques were used for this CT. COMPARISON: None. FINDINGS: Normal enhancement of the main pulmonary artery and right and left pulmonary arteries. Normal enhancement of the bilateral peripheral pulmonary arteries. There is no demonstrated pulmonary embolism. Normal thoracic aorta and visualized great vessels. There is no demonstrated aortic dissection. Normal heart and pericardium. There are no demonstrated calcifications of the coronary arteries. Normal mediastinum. Normal hilar regions. Normal visualized trachea and bronchi. The lungs are well expanded. Normal pulmonary parenchyma. No consolidation or pulmonary edema or pleural effusion is present. Normal pleura. Normal chest wall structures. There are degenerative changes of thoracic spine. Normal visualized upper abdomen. CT/CTA Chest W/WO Contrast IMPRESSION: 1. Normal CTA chest examination, without a demonstrated pulmonary embolism or arterial dissection. Electronically Signed: Chris Rogers MD at 11:38 EDT Reading Location ID and State: [facility] [place] , Service support ,
[2023-01-18] MEDS: Ondansetron 4 MG/2 ML Vial IV (10:47)
--- NOTE | 2023-01-18 11:05 | RAD_ITS ---
STUDY: X-RAY CHEST REASON FOR EXAM: Female, 47 years old. chest pain TECHNIQUE: Single AP portable view of the chest. COMPARISON: None. FINDINGS: The lungs are clear and expanded. There is no demonstrated pleural abnormality. Normal size heart. Normal mediastinum and mario. Normal visualized pulmonary arteries. Normal visualized aortic arch and descending thoracic aorta. Normal visualized thoracic spine. Normal visualized ribs, clavicles, and shoulders. There is no demonstrated abnormality of the visualized soft tissue structures of the upper abdomen. RAD/Chest 1 View (Portable) IMPRESSION: Normal x-ray examination of the chest. Electronically Signed: Chris Rogers MD at 11:34 EDT ,
[2023-01-18] MEDS: fentaNYL 100 MCG/2 ML Ampul 25 MCG IV (11:41)
[2023-01-18 12:13] LABS: Reflex Troponin-HS? (from REC) Y
[2023-01-18 12:38] VITALS: BP 142/88; PULSE 90; RESP 16; O2SAT 99
[2023-01-18 13:00] LABS: Troponin-I HS 4 pg/mL (3.0-54.0)
[2023-01-18 13:30] VITALS: BP 138/64; PULSE 89; RESP 19; O2SAT 97
== END 2023-01-18 13:54 | disposition home or self-care (01) ==
PROVIDERS: Emergency Provider Emergency Medicine; PCP Family Medicine; Visit Provider Emergency Medicine
DX: R79.89 Other specified abnormal findings of blood chemistry (principal); R07.9 Chest pain, unspecified
CPT/HCPCS: 71045; 71275; 80048; 84484; 85025; 85379; 93005; 96361; 96374; 96375; 99284; J7030; Q9967; A4216; J2405

== ENCOUNTER 2023-01-20 16:15 | Emergency (ER) | payer MEDICAID, SELFPAY ==
[2023-01-20 16:16] VITALS: BP 169/94; PULSE 110; RESP 18; TEMP 36.1; O2SAT 98; BMI 43.4
--- NOTE | 2023-01-20 17:19 | EDS_ITS ---
HPI History of Present Illness Chief Complaint: Lower Extremity Injury Narrative Narrative: 47-year-old female presenting for evaluation of left leg pain. States on her left anterior thigh. She denies any trauma. No history of DVT/PE and no risk factors. Patient was here few days ago with chest pain and had a full work-up which was negative. She had an elevated D-dimer at 1.59 at that point but her CTA was negative. Patient went for her follow-up today and since she has some leg pain in the anterior thigh with an elevated D-dimer from a few days ago her primary care physician sent her back to the ER for a duplex of the lower extremity. [facility] Medical History Abnormal Pap smear of cervix Hypertension Non-smoker Wears dentures Wears glasses Home Medications bupropion HCl 300 mg 24 hr tablet, extended release (Wellbutrin XL) 300 mg PO QAM 09/09/22 [History Last Taken Unknown] duloxetine 60 mg capsule,delayed release (Cymbalta) 60 mg PO DAILY 09/09/22 [History Last Taken Unknown] methylphenidate HCl 20 mg tablet (Ritalin) 20 mg PO DAILY 09/09/22 [History Last Taken 10/28/22] hydrochlorothiazide 12.5 mg tablet 12.5 mg PO DAILY #30 tabs 10/28/22 [Rx Last Taken Unknown] ibuprofen 800 mg tablet 800 mg PO Q8H PRN pain #30 tabs 10/28/22 [Rx Last Taken Unknown] promethazine 12.5 mg tablet 12.5 mg PO Q6H PRN nausea and vomiting #90 tabs 11/03/22 [Rx Last Taken Unknown] Allergy/AdvReac Type Severity Reaction Status Date / Time No Known Allergies Allergy Verified 01/20/23 16:17 Family History Father Alzheimer's dementia Surgical History S/P cholecystectomy S/P dilation and curettage S/P tubal ligation Status post hysterectomy Social History Smoking Status: Never smoker alcohol intake: current details: occasionally substance use type: does not use caffeine: Yes what type of physical activity do you participate in: none seatbelt use: always do you feel safe at home: Yes additional social history: Boyfriend-Farshad CAIN ED Constitutional Constitutional ED: Denies chills, fever(s) or sweats Eyes Eyes: Denies blurry vision or change in vision ENT ENT ED: Denies ear pain or sore throat Cardiovascular Cardiovascular: Denies chest pain, palpitations or racing heartbeat Respiratory/Chest Respiratory/Chest: Denies cough, dyspnea or sputum Gastrointestinal Gastrointestinal: Denies abdominal pain, constipation, diarrhea, nausea or vomiting Genitourinary Genitourinary ED: Denies dysuria, hematuria or urinary frequency Musculoskeletal Musculoskeletal: Reports other Details: Left anterior thigh ; Denies arthralgias or neck pain Integumentary Denies abscess, Abrasions or rash Neurologic Neurologic: Denies headache(s), paresthesias or weakness Psychiatric Psychiatric: Denies anxiety, depression, suicidal ideation or suicidal thoughts Endocrine Endocrinology: Denies polydipsia or polyuria EXAM Physical Exam Const Vital Signs: 01/20/23 16:16 Temperature 97 F L Temperature Source Temporal Pulse Rate 110 H Respiratory Rate 18 Blood Pressure 169/94 H Blood Pressure Mean 119 Pulse Ox 98 Oxygen Delivery Method Room Air Positive well nourished General Appearance ED: NAD HEENT Reports moist mucous membranes Resp normal respiratory effort Cardio regular rhythm Rate: tachycardic Extremity Extremity Narrative: Mall area of tenderness to palpation on the mid anterior thigh. No bruising, ecchymosis, rash, mass. No crepitance. No cords Neuro oriented x3 and CN's II-XII intact bilaterally Motor Exam: strength 5/5 throughout Psych mental status grossly normal MDM MDM MDM Narrative Medical decision making narrative: 47-year-old female with left anterior thigh pain. This is a very small area on the anterior thigh. There is no pain posteriorly in the thigh or the calf. No cords palpated. Wells score is -2. Patient did have an elevated D-dimer the other day so we did discuss getting an duplex of the left lower extremity. This was negative for DVT. Patient counseled this is likely a contusion. Patient will follow-up with PCP to ensure resolution. Impression: 1. Left lower extremity contusion Discharge Plan Triage Chief Complaint: Lower Extremity Injury ED Provider: Brendan Leon Dx/Rx/DC Orders Instructions: ED Contusion, Lower Extremity Prescriptions: No Action bupropion HCl [Wellbutrin XL] 300 mg tablet extended release 24 hr 300 mg PO QAM duloxetine [Cymbalta] 60 mg capsule,delayed release(DR/EC) 60 mg PO DAILY methylphenidate HCl [Ritalin] 20 mg tablet 20 mg PO DAILY ibuprofen 800 mg tablet 800 mg PO Q8H PRN (Reason: pain) Qty: 30 0RF hydrochlorothiazide 12.5 mg tablet 12.5 mg PO DAILY Qty: 30 2RF promethazine 12.5 mg tablet 12.5 mg PO Q6H PRN (Reason: nausea and vomiting) Qty: 90 4RF Primary Care Provider: Mack Juan Referrals: Mack Juan MD [Primary Care Provider] - Disposition Disposition: Home, Self Care
--- NOTE | 2023-01-20 17:47 | US_ITS ---
EXAM: US DUPLEX LEFT LOWER EXTREMITY VEINS CLINICAL INDICATION: LT ANTERIOR THIGH PAIN TECHNIQUE: Real-time duplex ultrasound scan of the left lower extremity veins integrating B-mode two-dimensional vascular structure, Doppler spectral analysis, color flow Doppler imaging and compression. COMPARISON: No relevant prior studies available. FINDINGS: DEEP VEINS: Unremarkable. No DVT in the visualized common femoral, femoral, proximal deep femoral or popliteal veins. The veins demonstrate normal color flow, are normally compressible, with normal phasic flow and/or augmentation response. SUPERFICIAL VEINS: Unremarkable. No thrombus in the visualized great saphenous vein. SOFT TISSUES: No acute findings. No popliteal cyst. US/Venous Duplex Imag/Limited/Uni IMPRESSION: Normal left lower extremity duplex venous ultrasound. Electronically Signed: Kayla Beltrán MD at 19:03 EDT Reading Location ID and State: [id number] / Tel , Service support ,
[2023-01-20 18:58] VITALS: RESP 16
== END 2023-01-20 18:59 | disposition home or self-care (01) ==
PROVIDERS: Emergency Provider Student in an Organized Health Care Education/Training Program; PCP Family Medicine; Visit Provider Student in an Organized Health Care Education/Training Program
DX: S70.12XA Contusion of left thigh, initial encounter (principal); X58.XXXA Exposure to other specified factors, initial encounter
CPT/HCPCS: 93971; 99282

== ENCOUNTER → 2023-06-10 | Outpatient (CLI) | payer MEDICAID, SELFPAY ==
[2023-06-10 13:42] LABS: Anion Gap 2 (5-15); BUN 17 mg/dL (7-18); BUN/Creat Ratio 18.7 RATIO (10-20); Calcium,Total 9.7 mg/dL (8.5-10.1); Chloride 108 mmol/L (98-107); Cholesterol 276 mg/dL (200); Creatinine, Serum 0.91 mg/dL (0.55-1.02); EST Glomerular Filtration Rate 71 mL/min (>60); Est Glom Filt Rate - Afr Amer 85 mL/min (>60); Glucose 89 mg/dL (74-106); High Density Lipoprotein 72 mg/dL; Potassium 4.6 mmol/L (3.5-5.1); Sodium Level 137 mmol/L (136-145); Triglycerides 148 mg/dL; Very Low Density Lipoprotein 30 mg/dL (5-40)
== END | disposition home or self-care (01) ==
LOC: MFPLAB 10:08
PROVIDERS: PCP Family Medicine; Visit Provider Family Medicine
DX: I10 Essential (primary) hypertension (principal)
CPT/HCPCS: 36415; 80048; 80061